=== PATIENT | female | born 1945 | race Caucasian/White ===

== ENCOUNTER → 2016-03-01 | Outpatient (CLI) | payer OTHER ==
[~2016-03-01] MED LIST: LIDOCAINE 1% 30 ML SDV ONE; NA BICARBONATE 50 MEQ/50 ML VIAL ONE
--- NOTE | 2016-03-01 18:27 | US ---
Ultrasound-Guided Thyroid Biopsy/Fine-Needle Aspiration - March 01, 2016 Indication: Large mass in left thyroid gland. Crosscutting Measure #226: Current tobacco user: No. Witnessed Consent: Witnessed informed consent was obtained after the risks, benefits, and alternativ es of ultrasound-guided thyroid biopsy were explained to the patient and all questions were answered. Procedure: Utilizing ultrasound guidance and sterile technique, the neck was prepped with ChloraPrep solution. Lidocaine with bicarbonate was used as local anesthesia. The 6.0 x 5.0 x 4.0 cm mass was id entified in the left lobe. A [id number]-wv-[id number] trajectory was selected. Utilizing needle packing/capi llary technique, the mass was sampled with 7 separate needles. The needles were passed to the bedside information assoc. Patient tolerated the procedure well. No hematoma on postprocedure imaging. Discharge instructions were given. Impression: 1. Successful ultrasound-guided fine-needle aspiration of left thyroid nodule. 2. Please refer to pending pathology report.
== END ==
LOC: FIMAGING 12:27
PROVIDERS: ATTEND Internal Medicine
PROC: 0G9 Endocrine System, Drainage (ICD-10-PCS; principal; 2016-03-01)
DX: D34 Benign neoplasm of thyroid gland (principal)

== ENCOUNTER 2016-03-09 16:32 | Emergency (ER) | payer OTHER ==
[2016-03-09 16:57] VITALS: BP 176/60; PULSE 72; RESP 18; TEMP 97.9; O2SAT 93
--- NOTE | 2016-03-09 17:25 | DX ---
PA and lateral chest. March 09, 2016. Clinical History: Productive cough x2 months Comparison Study: September 18, 2015.. Findings: No focal infiltrate or pleural effusion. Central bronchial wall thickening is compatible wi th bronchitis. Cardiac silhouette is upper normal. Moderate tortuosity of thoracic aorta.. Rightward tracheal deviation is compatible with left thyroid lobe mass.. Impression: Central bronchitis. No acute cardiopulmonary process. Left thyroid lobe mass.
--- NOTE | 2016-03-09 17:33 | EDPHY ---
H & P Chief Complaint Nursing Narrative: cough x 2 months, put on lfovent 12-21-15 and did not get filled, "too expensive", kids have pneumonia Time Seen by Provider: 03/09/16 17:04 HPI/ROS: HPI: 70-year-old female presents to urgent care with chief concern cough. Reports ongoing cough for almost 3 months. Intermittently productive. Denies fever, chills, shortness of breath, chest pain, abdominal pain, nausea, vomiting , diarrhea. Had a CT December 2015 that indicated pulmonary nodules. Has known thyroid mass that is benign. Was prescribed a Flovent inhaler November of 2015 but did not fill it because it was too expensive. Reports that her kids have pneumonia presently. ROS:10 point review of systems is negative other than as stated in HPI Source: Patient Exam Limitations: No limitations - Personal History Current Tetanus Diphtheria and Acellular Pertussis (TDAP): Yes - Medical/Surgical History Hx Asthma: Yes Hx Chronic Respiratory Disease: No Hx Diabetes: Yes Hx Cardiac Disease: No Hx Renal Disease: No Hx Cirrhosis: No Hx Alcoholism: No Hx HIV/AIDS: No Hx Splenectomy or Spleen Trauma: No Other PMH: HTN, DIABETES, HIGH CHOL,BILAT KNEE REPLACE, RIGHT HIP REPLACE, COLON CA, HERNIA - Social History Smoking Status: Former smoker Alcohol Use: None Drug Use: None - Physical Exam Exam: Vital signs stable, reviewed by me General: Awake, alert, calm, cooperative. No acute distress. Head: Normalocephalic. Atraumatic. EENT: PERRLA. EOMI. No pallor or injection. Anicteric. No nystagmus. No injection. TMs intact bilaterally with normal landmarks. No rhinnorhea, nasal passages clear. Oropharynx without redness, exudates, or lesions. Tonsils 2+ bilaterally, no exudates. Neck: Supple, nontender. No lymphadenopathy. Full range of motion. No meningismus. Respiratory: Breathing unlabored. Breath sounds equal bilaterally and clear to auscultation. No adventitious sounds. CV: Chest nontender, atraumatic. Heart rate regular. No murmur, distal pulses 2+ bilaterally. Brisk cap refill all extremities. GI: Abdomen soft, nontender. Bowel sounds normoactive and positive x4 quadrants. Neuro: Alert. Oriented x 3. Speech clear. Sensation intact all extremities. Skin: Skin warm, dry, intact. No rashes. Skin turgor normal. Extremities: Full range of motion in all 4 extremities. Strength 5+ all extremities. Constitutional: Initial Vital Signs Temperature (C) 36.6 C 03/09/16 16:53 Heart Rate 72 03/09/16 16:53 Respiratory Rate 18 03/09/16 16:53 Blood Pressure 176/60 H 03/09/16 16:53 O2 Sat (%) 93 03/09/16 16:53 O2 Delivery Mode Room Air Allergies/Adverse Reactions: latex Allergy (Mild, Verified 09/02/15 20:34) adhesive Allergy (Verified 09/02/15 20:34) Sulfa (Sulfonamide Antibiotics) Allergy (Verified 09/02/15 20:34) tawlin Allergy (Severe, Uncoded 09/02/15 20:34) Home Medications: Medication Instructions Recorded Proventil Inhaler 04/07/11 SIMVASTATIN 04/07/11 Citalopram 09/02/15 Econazole 1% [Spectazole 1%] 1 tang TP BID #30 gm 09/02/15 Losartan Potassium 09/02/15 Metformin 1000 mg 09/02/15 Albuterol Hfa Anes Only [Proair 2 puffs IH QID PRN #1 mdi 03/09/16 Hfa Anes Only] predniSONE 20 mg PO DAILY #9 tab 03/09/16 Medical Decision Making - Diagnostics Imaging: PA and lateral chest. March 09, 2016. Clinical History: Productive cough x2 months Comparison Study: September 18, 2015.. Findings: No focal infiltrate or pleural effusion. Central bronchial wall thickening is compatible with bronchitis. Cardiac silhouette is upper normal. Moderate tortuosity of thoracic aorta.. Rightward tracheal deviation is compatible with left thyroid lobe mass.. Impression: Central bronchitis. No acute cardiopulmonary process. Left thyroid lobe mass. Dictated By: Chencho Charles MD ED Course/Re-evaluation: Chest x-ray consistent with bronchitis. No pneumonia. Flu swab negative. Patient afebrile. Patient prescribed albuterol inhaler. She is given a short burst of oral steroids. Given 40 mg prednisone here tonight. She has been counseled regarding need to follow up with primary care within the next 48 hours for recheck without fail. She verbalizes understanding and agrees to do so. Vitals are stable. She is afebrile. Lungs are clear to auscultation bilaterally. Heart rate 72, oxygen saturation 93% on room air. She is stable for discharge. Differential Diagnosis: Differential diagnosis includes but is not limited to bronchitis, pneumonia, reactive airway disease, influenza, COPD - Data Points Laboratory Results: 03/09/16 17:25 Influenza Typ A,B (DFA) NEGATIVE FOR FLU (NEGATIVE) Departure - Departure Disposition: Home, Routine, Self-Care Clinical Impression: Bronchitis Condition: Good Instructions: Acute Bronchitis (ED) Additional Instructions: Plan: Flu swab negative Steroid burst as prescribed Use your albuterol inhaler 2 puffs every 4-6 hours for shortness of breath, wheezing. Follow up with your primary care provider within the next 48 hours for recheck without fail--When you call to schedule appointment, please let the office know you are an "ER follow up" appointment" If he developed shortness of breath or chest pain go to emergency department Prescriptions: Albuterol Hfa Anes Only [Proair Hfa Anes Only] 2 puffs IH QID PRN #1 mdi PRN Reason: Short Of Breath/Dyspnea predniSONE 20 mg PO DAILY #9 tab
[2016-03-09] MEDS ORDERED: predniSONE 20 MG TAB PO ONE (17:40)
== END 2016-03-09 17:56 | disposition home or self-care (01) ==
LOC: CED 16:32
DX: J20.9 Acute bronchitis, unspecified (principal)
CPT/HCPCS: 71020; G0463; 87400-PO

== ENCOUNTER → 2017-04-07 | Outpatient (CLI) | payer OTHER | LOC: CIMAGING 15:32 | PROVIDERS: ATTEND Internal Medicine | DX: M79.661 Pain in right lower leg (principal); R60.0 Localized edema | CPT/HCPCS: 93971-PO ==

== ENCOUNTER → 2017-12-28 | Outpatient (CLI) | payer OTHER | LOC: CIMAGING 14:03 | PROVIDERS: ATTEND Internal Medicine | DX: R06.02 Shortness of breath (principal); R91.1 Solitary pulmonary nodule; J45.909 Unspecified asthma, uncomplicated | CPT/HCPCS: 71250-PO ==

== ENCOUNTER → 2018-08-07 | Outpatient (CLI) | payer OTHER | LOC: CIMAGING 17:43 ==